=== PATIENT | female | born 1955 | race Two or more races ===

== ENCOUNTER 2024-03-04 12:48 | Emergency (ER) | payer OTHER ==
[~2024-03-04] VITALS: Ht 157.5 cm; Wt 63.5 kg
[2024-03-04] MEDS ORDERED: ORPHENADRINE CITRATE 30 MG/ML AMPUL IM ONE (13:45)
[2024-03-04] MEDS ORDERED: ORPHENADRINE CITRATE 30 MG/ML AMPUL ONE (13:48)
== END 2024-03-04 17:20 | disposition home or self-care (01) ==
LOC: ER 12:49
DX: M25.519 Pain in unspecified shoulder (principal); W18.30XA Fall on same level, unspecified, initial encounter; Z88.6 Allergy status to analgesic agent
CPT/HCPCS: 73020; 73060; 73070; 73090; 73100; 96372; 99283; J2360